=== PATIENT | female | born 1980 | race Two or more races ===

== ENCOUNTER 2016-11-26 19:45 | Emergency (ER) | payer MEDICAID ==
[~2016-11-26] VITALS: Ht 162.6 cm; Wt 81.6 kg
[2016-11-26 22:28] VITALS: BP 128/84
== END 2016-11-26 23:22 | disposition home or self-care (01) ==
LOC: ER 19:56
DX: J40 Bronchitis, not specified as acute or chronic (principal)

== ENCOUNTER 2016-12-03 10:50 | Emergency (ER) | payer MEDICAID ==
[~2016-12-03] VITALS: Ht 162.6 cm; Wt 81.6 kg
[2016-12-03 11:50] VITALS: BP 119/79
== END 2016-12-03 12:16 | disposition home or self-care (01) ==
LOC: ER 10:51
DX: J20.9 Acute bronchitis, unspecified (principal)

== ENCOUNTER 2016-12-09 13:58 | Emergency (ER) | payer MEDICAID ==
[~2016-12-09] VITALS: Ht 152.4 cm; Wt 77.1 kg
[2016-12-09] MEDS ORDERED: SODIUM CHLORIDE 0.9% 1,000 ML IV ONE (21:45)
[2016-12-09 21:52] LABS: Basophils # (auto) 0 uL; Basophils % (auto) 0.3 % (0.0-2.0); CONDITION Y; Eosinophils # (auto) 0.2 uL; Eosinophils % (auto) 1.5 % (0.0-7.0); Hematocrit 33.5 % (36.0-46.0); Hemoglobin 11.2 g/dL (12.2-16.2); Lymphocytes # (auto) 1.2 uL; Lymphocytes % (auto) 11.5 % (10.0-50.0); Mean Corpuscular Hgb Conc. 33.3 g/dL (32.0-36.0); Mean Corpuscular Volume 81.1 fL (80.0-100.0); Mean Platelet Volume 8.5 fL (7.4-10.4); Monocytes # (auto) 0.6 uL; Monocytes % (auto) 5.4 % (0.0-12.0); Neutrophils # (auto) 8.6 uL; Neutrophils % (auto) 81.3 % (37.0-80.0); Platelet Count (auto) 360 10^3/uL (140-450); Red Cell Distribution Width 14.1 % (11.6-16.0); White Blood Cell 10.5 10^3/uL (4.4-10.8)
[2016-12-09 21:52] LABS: Allen Test Yes; Base Excess 1.1 mmol/L (-2.0-2.0); Blood 02Sat 93.6 % (96-100); Blood COHb 0.3 % (0.5-1.5); Blood MetHb 0.1 % (0.0-1.5); HCO3 24.2 mmol/L (22-26.0); HHb 6.4 % (0.0-5.0); MODE ROOM AIR; O2Hb 93.2 % (94.0-97.0); PCO2 33.3 mmHg (35.0-45.0); PCO2(T) 33.3 mmHg (35.0-45.0); PO2 69.9 mmHg (80.0-100.0); PO2(T) 69.9 mmHg (80.0-100.0); Sample Type Arterial; pH 7.479 (7.350-7.450)
[2016-12-09 22:12] LABS: Albumin 3.2 g/dL (3.4-5.0); BUN/Creatinine Ratio 15.7; Calcium 8.7 mg/dL (8.5-10.1); Potassium 3.6 mmol/L (3.5-5.1)
[2016-12-09 22:15] LABS: Bilirubin, Total 0.2 mg/dL (0.2-1.0); Total Protein 7.3 g/dL (6.4-8.2)
[2016-12-10 06:35] VITALS: BP 119/49
== END 2016-12-10 06:36 | disposition short-term general hospital (02) ==
LOC: ER 14:08
DX: C78.1 Secondary malignant neoplasm of mediastinum (principal); C80.1 Malignant (primary) neoplasm, unspecified
CPT/HCPCS: 36415; 36600; 71260; 80053; 82805; 85025; 93005; 94761; 96360; 96361; 99285; J7030